=== PATIENT | female | born 1945 | race Caucasian/White ===

== ENCOUNTER 2017-08-16 10:57 | Outpatient (CLI) | payer MEDICARE, OTHER ==
[2017-08-16 12:48] LABS: Hematocrit 38.7 % (36.0-47.0); Mean Platelet Volume 7.7 fL (7.4-10.4); Red Blood Cell (RBC) Count 4.08 mill/uL (4.20-5.40); White Blood Cell (WBC) Count 6.4 thou/uL (4.8-10.8)
[2017-08-16 13:09] LABS: Anion Gap 10 mmol/L (10-20); BUN (Urea Nitrogen) 19 mg/dL (9.8-20.1); Calc. Creatinine Clearance 0 mL/min (70-130); Calcium 9.2 mg/dL (7.8-10.44); Carbon Dioxide 28 mmol/L (23-31); Chloride 105 mmol/L (98-107); Estimated GFR-MDRD 86
--- NOTE | 2017-08-16 13:38 | RAD ---
PA AND LATERAL CHEST: History: Pre-operative. Comparison: None. FINDINGS: There is mild bibasilar atelectasis. No confluent airspace opacities or pleural effusions noted. Car diomediastinal silhouette is within normal limits. The aorta is tortuous. No acute osseous abnormali ty is evident. IMPRESSION: Mild bibasilar atelectasis. POS: [facility]
--- NOTE | 2017-08-16 16:15 | EKG ---
Test Reason : Blood Pressure : / mmHG Vent. Rate : 063 BPM Atrial Rate : 063 BPM P-R Int : 180 ms QRS Dur : 094 ms QT Int : 440 ms P-R-T Axes : 047 011 038 degrees QTc Int : 450 ms Normal sinus rhythm Cannot rule out Anterior infarct , age undetermined Abnormal ECG No previous ECGs available Confirmed by DR. Lily COLEMAN ([id number]) on 08/16/2017 4:15:26 PM Referred By: CLIVE Confirmed By:DR. Lily COLEMAN
== END 2017-08-16 10:58 | disposition home or self-care (01) ==
LOC: LABBT 10:57
PROVIDERS: ATTEND Orthopaedic Surgery Hand Surgery
DX: Z01.818 Encounter for other preprocedural examination (principal); M65.332 Trigger finger, left middle finger; J98.11 Atelectasis
CPT/HCPCS: 71020; 80048; 85027; 93005; 93010

== ENCOUNTER 2018-04-01 10:24 | Inpatient (IN) | payer MEDICARE ==
[2018-04-01 10:49] LABS: #Eosinphils 0.2 thou/uL (0.0-0.7); #Lymphocytes 1.4 thou/uL (1.20-3.40); #Monocytes 0.7 thou/uL (0.11-0.59); %Basophils 0.6 % (0.0-1.0); %Eosinophils 2.4 % (0.0-10.0); %Lymphocytes 18.8 % (21.0-51.0); %Monocytes 9.7 % (0.0-10.0); %Neutrophils 68.5 % (42.0-75.0); Hemoglobin 12.9 g/dL (12.0-16.0); Mean Corpuscular HGB CONC 33.9 g/dL (32.0-36.0); Mean Corpuscular Hemoglobin 31.3 pg (27.0-31.0); Mean Corpuscular Volume 92.4 fl (81.0-99.0); Mean Platelet Volume 7.2 fL (7.4-10.4); Platelet Count 207 thou/uL (130-400); RBC Distribution Width 12.9 % (11.5-14.5); Red Blood Cell (RBC) Count 4.11 mill/uL (4.20-5.40); White Blood Cell (WBC) Count 7.3 thou/uL (4.8-10.8)
[2018-04-01 11:12] LABS: ALT (SGPT) 15 U/L (8-55); AST (SGOT) 24 U/L (5-34); Albumin 4.4 g/dL (3.4-4.8); Alkaline Phosphatase 71 U/L (40-150); Anion Gap 14 mmol/L (10-20); BUN (Urea Nitrogen) 14 mg/dL (9.8-20.1); Bilirubin, Total 1.3 mg/dL (0.2-1.2); Calc. Creatinine Clearance 0 mL/min (70-130); Calcium 9.3 mg/dL (7.8-10.44); Carbon Dioxide 22 mmol/L (23-31); Chloride 106 mmol/L (98-107); Estimated GFR-MDRD 81; Globulin 2.5 g/dL (2.4-3.5); Glucose 100 mg/dL (80-115); Potassium 4.1 mmol/L (3.5-5.1); Protein, Total 6.9 g/dL (6.0-8.3); Sodium 138 mmol/L (136-145)
[2018-04-01 11:17] LABS: CKMB 4.1 ng/mL (0-6.6)
--- NOTE | 2018-04-01 12:04 | RAD ---
AP VIEW CHEST: INDICATIONS: History of EKG changes and dehydration with low blood pressure. COMPARISON: 09/12/2017 FINDINGS: The lungs are clear. The heart size is at the upper limits of normal. No consolidation, pleural eff usion, or pneumothorax is evident. No acute osseous abnormality is evident. The examination is comp ared to a prior study dated 09/12/2017. The examination has not appreciably changed from the compari son study. IMPRESSION: No acute cardiopulmonary abnormality. POS: [facility]
[2018-04-01] MEDS ORDERED: Iopamidol 370 76% 50 ML VIAL FS ONE (12:13)
[2018-04-01] MEDS ORDERED: Iopamidol 370 76% 100 ML VIAL ONE (12:13)
[2018-04-01] MEDS ORDERED: Nitroglycerin 0.4 MG TAB (25 Tab Bottle) SL PRN ×2 (13:05→15:11)
[2018-04-01] MEDS ORDERED: Bisacodyl 5 MG TAB PO PRN (13:05)
[2018-04-01 13:55] LABS: Critical Call Chem Troponin I RESULT DECREASING; Troponin I 0.453 ng/mL (< 0.028)
--- NOTE | 2018-04-01 14:01 | HP ---
PRIMARY CARE PHYSICIAN: Dr. Thiago Frias CHIEF COMPLAINT: Abnormal EKG. HISTORY OF PRESENT ILLNESS: Ms. Nair is a pleasant 72-year-old lady who was seen at [facility] on 04/01/2018 after she was sent to the emergency room by her primary care jina zelaya. She was following up with her orthopedic surgeon yesterday. At that time, she was found to have low blood pressure, 84/62. She called her primary care provider's office. Around 11:00 a.m., she was se nt to an urgent care clinic. She had an electrocardiogram done there and discharged home. At home, she rechecked her blood pressure and found that it was even lower. She went for a followup with her primary care provider today. She reports feeling lightheaded yesterday afternoon. She had another e lectrocardiogram done today at her PCP's office and the electrocardiogram was found to be different f rom the one done at [facility] yesterday. She was therefore sent to the emergency room. She reports not taking her antihypertensives over the last 3 days. She denies any chest pain or shor tness of breath. She denies any fevers or chills. REVIEW OF SYSTEMS: All other systems reviewed and found to be negative. PAST MEDICAL HISTORY: Significant for hypertension, dyslipidemia and multiple sclerosis. PAST SURGICAL HISTORY: Bilateral foot surgery, left carpal tunnel surgery, and bilateral knee replac ement. PSYCHIATRIC HISTORY: Depression. FAMILY HISTORY: Coronary artery disease in her mother. CVA or DC in her father. SOCIAL HISTORY: Occasional alcohol use, no tobacco use or recreational drug use. CODE STATUS: She is FULL CODE. Her medical power of contract attorney is Jocelynn Devine. ALLERGIES: CEPHALOSPORINS. CURRENT MEDICATIONS: Effexor 150 mg daily, Crestor 10 mg daily, Tribenzor 20/5/12.5 mg daily, Myrbet riq 25 mg daily. PHYSICAL EXAMINATION: GENERAL: Ms. Nair is awake and alert, not in acute distress. VITAL SIGNS: Blood pressure is 110/68, pulse is 84. She is breathing at rate of 16, and saturating 99% on room air. She is afebrile. EYES: No scleral icterus. No conjunctival pallor. ENT: Moist mucosal membranes, no oropharyngeal erythema or exudates. NECK: Supple, nontender, normal range of movement. Trachea is midline. RESPIRATORY: Accessory muscles of breathing are not active. Chest wall movements are symmetric bila terally. LUNGS: Clear to auscultation without wheeze, rhonchi or crepitations. CARDIOVASCULAR: S1 and S2 are heard, peripheral pulses palpable. No pericardial rub, no carotid bru it. ABDOMEN: Soft, nontender, bowel sounds are heard, no hepatomegaly, no splenomegaly. LYMPHATIC: No cervical lymphadenopathy. SKIN: No rashes or subcutaneous nodules. NEUROLOGIC: Cranial nerves II-XII intact. Deep tendon reflexes are 2+. MUSCULOSKELETAL: Power is 5/5 in all 4 extremities. PSYCHIATRIC: Normal mood, normal affect, patient is oriented to person, place, and time. LABORATORY DATA: Ms. Nair's labs and investigations were reviewed. I reviewed her electrocardiog robert, which shows normal sinus rhythm with T-wave flattening in the inferior leads and T-wave inversio ns in the anterolateral leads. I also reviewed her chest x-ray, which does not show any pulmonary in filtrates. She has an unremarkable CBC and a mildly elevated total bilirubin of 1.3, mildly decreased carbon zac xide of 22, otherwise normal comprehensive metabolic profile and elevated troponin I of 0.480. ASSESSMENT AND PLAN: Ms. Nair is a pleasant 72-year-old lady who was seen at [facility] on 04/01/2018. Her problem list includes: 1. Non-ST elevation myocardial infarction: She is presenting with non-ST elevation myocardial infar ction, with elevated troponin I and T-wave inversions in the lateral leads. She will be admitted to the hospital for further management. Cardiology Service has been consulted by the emergency room talia sahu. I will continue her on aspirin for now. 2. Hypertension. Monitor vital signs, titrate antihypertensives as needed. 3. Dyslipidemia: Continue statin. 4. Multiple sclerosis: Stable. Many thanks for allowing me to participate in your patient's care. Please feel free to contact me wi th any questions or concerns. LEVEL OF RISK: High. LEVEL OF COMPLEXITY: High.
[2018-04-01] MEDS ORDERED: Communication Order-Pharmacy FS SCH (14:15)
[2018-04-01] MEDS ORDERED: Lidocaine 1% (PF) 30 ML VIAL ONE (14:21)
[2018-04-01] MEDS ORDERED: Sodium Chloride 0.9% 500 ML IVPB SCH (14:30)
[2018-04-01 14:43] VITALS: BMI 33.9
[2018-04-01] MEDS ORDERED: Midazolam HCl 2 mg/2 ml Vial ONE (14:48)
[2018-04-01] MEDS ORDERED: Acetaminophen/Codeine 30-300mg Tablet PO PRN ×2 (15:11)
[2018-04-01] MEDS ORDERED: traMADol HCl 50 MG TAB PO PRN (15:11)
[2018-04-01] MEDS ORDERED: Sodium Chloride 0.9% 200 ML IV PRN (15:15)
--- NOTE | 2018-04-01 15:23 | CON ---
DATE OF CONSULTATION: 04/01/2018 HISTORY OF PRESENT ILLNESS: Patient is a 72-year-old woman who presents for evaluation of chest discomfort and abnormal ECG. The patient has no previous cardiac history. The patient was noted yesterday to have low blood pressure. She went to [facility]. She underwent an echocardiogram and was released. The patient subsequently reported having left-sided chest discomfort. She came to the emergency room for further evaluation. She went to see her primary physician who saw that she had a markedly abnormal electrocardiogram and was admitted for further evaluation. The patient denies having any present chest discomfort. PAST MEDICAL HISTORY: 1. Hypertension. 2. Hypercholesterolemia. PAST SURGICAL HISTORY: Knee surgery. SOCIAL HISTORY: Former smoker. FAMILY HISTORY: Strong family history of coronary artery disease. ALLERGIES: CEPHALOSPORINS. REVIEW OF SYSTEMS: Ten-point system otherwise unremarkable. MEDICATIONS: Crestor 10 at bedtime, meloxicam 7.5 daily, Tribenzor 20/5/4.5 tablet daily. REVIEW OF SYSTEMS: Ten-point system otherwise unremarkable. PHYSICAL EXAMINATION: GENERAL: Well-developed woman in no acute distress. VITAL SIGNS: Blood pressure was 105/70 and heart rate was 70. NECK: Showed no jugular distention, no carotid bruits. HEART: Regular rate and rhythm, normal S1, S2. ABDOMEN: Nondistended. EXTREMITIES: Show no edema. SKIN: Warm and dry. NEUROLOGIC: Nonfocal. VASCULAR: Radial pulses are 2+. LABORATORY DATA AND IMAGING DATA: White blood cell count 7.3, hemoglobin 12.9, hematocrit 38.0, platelets are 207. Sodium is 138, potassium 4.1, chloride 106 , bicarbonate 22, BUN 14, creatinine 0.71, glucose is 100. Troponin was 0.48. Her EKG revealed normal sinus rhythm with marked ST-T wave abnormality with prolonged QT interval suggestive of ischemia. IMPRESSION: 1. Non-Q-wave myocardial infarction. 2. Hypotension. 3. Dyslipidemia. This patient presents with a non-Q-wave myocardial infarction, and a markedly abnormal EKG suggestive of severe CAD. I have recommended proceeding directly to cardiac catheterization to evaluate the extent of her coronary artery disease. I explained the risks involved cardiac catheterization including IL, bleeding, stroke, cardiac arrhythmia, and cardiac . I explained the risks involved stent placement restenosis. Patient understands these risks and wishes to proceed. MACARIO
[2018-04-01] MEDS: Sodium Chloride 0.9% 1,000 ML IV SCH ×2 (16:08→23:57)
[2018-04-01 17:00] LABS: Critical Call Chem Troponin I RESULT DECREASING; Troponin I 0.348 ng/mL (< 0.028)
[2018-04-01] MEDS ORDERED: Atorvastatin Calcium 40 MG TAB PO SCH (21:00)
[2018-04-02 05:22] LABS: #Eosinphils 0.3 thou/uL (0.0-0.7); #Lymphocytes 1.2 thou/uL (1.20-3.40); #Monocytes 0.6 thou/uL (0.11-0.59); #Neutrophils 4.4 thou/uL (1.40-6.50); %Basophils 0.6 % (0.0-1.0); %Eosinophils 3.9 % (0.0-10.0); %Lymphocytes 18.4 % (21.0-51.0); %Monocytes 9.6 % (0.0-10.0); %Neutrophils 67.5 % (42.0-75.0); Hemoglobin 11.9 g/dL (12.0-16.0); Mean Corpuscular HGB CONC 34.5 g/dL (32.0-36.0); Mean Corpuscular Hemoglobin 31.4 pg (27.0-31.0); Mean Corpuscular Volume 91.1 fL (78.0-98.0); Platelet Count 188 thou/uL (130-400); RBC Distribution Width 12.8 % (11.5-14.5); White Blood Cell (WBC) Count 6.6 thou/uL (4.8-10.8)
[2018-04-02 05:53] LABS: Anion Gap 10 mmol/L (10-20); BUN (Urea Nitrogen) 12 mg/dL (9.8-20.1); Calc. Creatinine Clearance 92 mL/min (70-130); Calcium 8.6 mg/dL (7.8-10.44); Carbon Dioxide 25 mmol/L (23-31); Chloride 110 mmol/L (98-107); Estimated GFR-MDRD Greater than 90; Glucose 109 mg/dL (80-115); Potassium 3.8 mmol/L (3.5-5.1); Sodium 141 mmol/L (136-145)
[2018-04-02] MEDS: Aspirin 325 MG TAB PO SCH (09:22)
[2018-04-02] MEDS ORDERED: Lisinopril 2.5 MG TAB PO SCH (14:00)
[2018-04-02] MEDS: Sodium Chloride 0.9% 1,000 ML IV SCH ×2 (17:01→19:34)
[2018-04-02] MEDS: Carvedilol 3.125 MG TAB PO SCH (17:02)
--- NOTE | 2018-04-02 18:39 | PDOC.PN ---
- Subjective Encounter Start Date: 04/02/18 Encounter Start Time: 14:00 pt seen for followup re: chest pain. Denies chest pain, shortness of breath, fevers or chills - Objective Resuscitation Status: Resuscitation Status FULL:Full Resuscitation Vital Signs & Weight: Vital Signs (12 hours) Temp Pulse Pulse Pulse Resp BP BP 04/02/18 16:00 98.2 F 74 16 04/02/18 15:30 77 04/02/18 11:44 98.6 F 77 16 04/02/18 10:01 79 88 101/62 130/64 04/02/18 08:00 98.6 F 77 16 BP Pulse Ox 04/02/18 16:00 115/62 96 04/02/18 15:30 04/02/18 11:44 106/62 97 04/02/18 10:01 04/02/18 08:00 106/67 94 L Weight Weight 156 lb 12.8 oz Result Diagrams: 04/02/18 05:00 04/02/18 05:00 EKG Reviewed by me: Yes (tele: NSR) Phys Exam - Physical Examination Constitutional: NAD HEENT: moist MMs Neck: supple Respiratory: clear to auscultation bilateral Cardiovascular: RRR, no rub Gastrointestinal: soft, non-tender Neurological: moves all 4 limbs Psychiatric: normal affect Dx/Plan (1) Chest pain Code(s): R07.9 - CHEST PAIN, UNSPECIFIED Status: Acute Comment: no current chest pain, normal coronaries on cardiac cath (2) Cardiomyopathy Code(s): I42.9 - CARDIOMYOPATHY, UNSPECIFIED Status: Acute Comment: pt awaiting LifeVest, continue beta ayo and ACEI (3) HTN (hypertension) Code(s): I10 - ESSENTIAL (PRIMARY) HYPERTENSION Status: Chronic Comment: monitor vital signs, titrate antihypertensives as needed (4) Dyslipidemia Code(s): E78.5 - HYPERLIPIDEMIA, UNSPECIFIED Status: Chronic - Plan * . continue statin Review of Systems - Review of Systems Constitutional: negative: fever, chills, sweats, weakness, malaise Cardiovascular: negative: chest pain, palpitations, orthopnea, paroxysmal nocturnal dyspnea, edema, light headedness - Medications/Allergies Allergies/Adverse Reactions: Allergies Allergy/AdvReac Type Severity Reaction Status Date / Time Cephalosporins Allergy Verified 04/01/18 14:41 Medications: Current Medications Acetaminophen/Codeine Phosphate (Tylenol #3) 1 tab PO Q4H PRN PRN Reason: Mild Pain (1-3) Acetaminophen/Codeine Phosphate (Tylenol #3) 2 tab PO Q4H PRN PRN Reason: Moderate Pain (4-6) Aspirin (Aspirin) 325 mg PO DAILY [facility] Last Admin: 04/02/18 09:22 Dose: 325 mg Bisacodyl (Dulcolax) 10 mg PO DAILYPRN PRN PRN Reason: Constipation Carvedilol (Coreg) 3.125 mg PO BID-[facility] Last Admin: 04/02/18 17:02 Dose: 3.125 mg Sodium Chloride (Normal Saline 0.9%) 1,000 mls @ 100 mls/hr IV .Q10H [facility] Last Admin: 04/02/18 17:01 Dose: Not Given Lisinopril (Zestril) 2.5 mg PO 1400 [facility] Last Admin: 04/02/18 15:30 Dose: 2.5 mg Nitroglycerin (Nitrostat) 0.4 mg SL Q5MIN PRN PRN Reason: Chest Pain Rosuvastatin Calcium (Crestor) 10 mg PO HS [facility] Sodium Chloride (Flush - Normal Saline) 10 ml IVF Q12HR [facility] Last Admin: 04/02/18 15:30 Dose: 10 ml Sodium Chloride (Flush - Normal Saline) 10 ml IVF PRN PRN PRN Reason: Saline Flush Tramadol HCl (Ultram) 50 mg PO Q6H PRN PRN Reason: Moderate Pain (4-6)
[2018-04-02] MEDS ORDERED: Rosuvastatin 10 MG TAB PO SCH (21:00)
[2018-04-03] MEDS: Sodium Chloride 0.9% 1,000 ML IV SCH (03:41)
[2018-04-03 04:33] LABS: #Eosinphils 0.3 thou/uL (0.0-0.7); #Monocytes 0.6 thou/uL (0.11-0.59); #Neutrophils 4.1 thou/uL (1.40-6.50); %Basophils 0.6 % (0.0-1.0); %Eosinophils 4.9 % (0.0-10.0); %Lymphocytes 16.4 % (21.0-51.0); %Monocytes 9.5 % (0.0-10.0); %Neutrophils 68.7 % (42.0-75.0); Hemoglobin 11.5 g/dL (12.0-16.0); Mean Corpuscular HGB CONC 34.3 g/dL (32.0-36.0); Mean Corpuscular Hemoglobin 31.4 pg (27.0-31.0); Mean Corpuscular Volume 91.4 fL (78.0-98.0); Mean Platelet Volume 7.1 fL (7.4-10.4); Platelet Count 168 thou/uL (130-400); RBC Distribution Width 12.9 % (11.5-14.5); Red Blood Cell (RBC) Count 3.67 mill/uL (4.20-5.40)
[2018-04-03 04:52] LABS: Anion Gap 10 mmol/L (10-20); BUN (Urea Nitrogen) 11 mg/dL (9.8-20.1); Calc. Creatinine Clearance 96 mL/min (70-130); Calcium 8.7 mg/dL (7.8-10.44); Carbon Dioxide 25 mmol/L (23-31); Chloride 110 mmol/L (98-107); Estimated GFR-MDRD Greater than 90; Glucose 111 mg/dL (80-115); Potassium 3.8 mmol/L (3.5-5.1); Sodium 141 mmol/L (136-145)
[2018-04-03] MEDS: Aspirin 325 MG TAB PO SCH (08:53)
[2018-04-03] MEDS: Carvedilol 3.125 MG TAB PO SCH (08:53)
[2018-04-03 11:47] VITALS: BP 120/73; TEMP 98.1
--- NOTE | 2018-04-03 14:20 | DIS ---
DATE OF ADMISSION: 04/01/2018 DATE OF DISCHARGE: 04/03/2018 PRIMARY CARE PROVIDER: Thiago Frias M.D. ADMITTING DIAGNOSIS: Nonischemic cardiomyopathy. CONDITION OF PATIENT ON THE DAY OF DISCHARGE: Stable. I assessed Ms. Nair on the day of discharg e. She denies any chest pain or shortness of breath. She denies any fevers or chills. Vital signs are stable. S1 and S2 are heard, regular. Lungs are clear to auscultation bilaterally. DISCHARGE MEDICATIONS: Aspirin 325 mg daily, carvedilol 2.5 mg 2 times a day, vitamin C 500 mg daily , vitamin D3 of 2000 units daily, diclofenac 75 mg at bedtime, folic acid 0.8 mg daily, lisinopril 2. 5 mg daily, vitamin B12 of 1000 mcg sublingually daily, Myrbetriq 25 mg daily, potassium gluconate 59 5 mg daily, Crestor 10 mg at bedtime, selenium 100 mg daily, Zanaflex 2 mg as needed, Coenzyme Q10 of 30 mg daily, Effexor 75 mg 2 times a day, and zinc 50 mg daily. CONSULTATIONS DURING THIS HOSPITALIZATION: Cardiology, Dr. Pal. HOSPITAL COURSE: Ms. Nair is a pleasant 72-year-old lady who was admitted to [facility] on 04/01/2018 for elevated troponin, preceded by hypotension. She was seen by Cardiolo gy Service. She underwent cardiac catheterization on 04/01/2018, which showed normal coronaries. A 2D echocardiogram on 04/02/2018 showed left ventricular ejection fraction of 30-35%. She has been st arted on ayo and ADRIENNE inhibitor. She has been fitted with a LifeVest, and is being discharged david e in a stable condition. On the day of discharge, she has normal sodium, normal potassium, creatinine 0.61, white count 6000, hemoglobin 11.5, and platelet count 168,000. Many thanks for allowing me to participate in your patient's care. Please feel free to contact me wi th any questions or concerns. DISCHARGE DESTINATION: Home. TOTAL AMOUNT OF TIME SPENT COORDINATING THIS DISCHARGE: 33 minutes.
== END 2018-04-03 13:17 | disposition home or self-care (01) | DRG 282 ==
LOC: ERS 10:24 → 2SE 12:20
PROVIDERS: ADMIT Internal Medicine; ATTEND Internal Medicine
PROC: 4A023N7 Measurement of Cardiac Sampling and Pressure, Left Heart, Percutaneous Approach (ICD-10-PCS; principal; 2018-04-01)
PROC: B2111ZZ Fluoroscopy of Multiple Coronary Arteries using Low Osmolar Contrast (ICD-10-PCS; 2018-04-01)
PROC: B2151ZZ Fluoroscopy of Left Heart using Low Osmolar Contrast (ICD-10-PCS; 2018-04-01)
PROC: B246ZZZ Ultrasonography of Right and Left Heart (ICD-10-PCS; 2018-04-01)
DX: I42.8 Other cardiomyopathies (principal); I21.4 Non-ST elevation (NSTEMI) myocardial infarction; I10 Essential (primary) hypertension; E78.5 Hyperlipidemia, unspecified; E78.00 Pure hypercholesterolemia, unspecified; F32.9 Major depressive disorder, single episode, unspecified; G35 Multiple sclerosis
CPT/HCPCS: 36415; 71045; 80048; 80053; 82553; 84484; 85025; 93005; 93306; 93458; 93798; A4216; C1769; J1644; J2001; J2250

== ENCOUNTER 2018-07-07 10:40 | Outpatient (CLI) | payer MEDICARE | END 2018-07-07 10:41 | disposition home or self-care (01) | LOC: BICMAMMO 10:40 | PROVIDERS: ATTEND Obstetrics & Gynecology | DX: Z12.31 Encounter for screening mammogram for malignant neoplasm of breast (principal); R92.1 Mammographic calcification found on diagnostic imaging of breast | CPT/HCPCS: 77063; 77067 ==

== ENCOUNTER 2018-09-11 11:19 | Day surgery (SDC) | payer MEDICARE ==
[2018-09-10 08:58] VITALS: BMI 34.6
[2018-09-11] MEDS ORDERED: PROPOFOL 200 MG/20 ML VIAL ONE (11:21)
--- NOTE | 2018-09-11 22:37 | OP ---
DATE OF PROCEDURE: 09/11/2018 TITLE OF PROCEDURE: EGD with biopsy. ANESTHESIA: Total intravenous anesthesia by Dr. Marcelo Anguiano. PREPROCEDURE DIAGNOSIS: Chronic reflux, recently symptomatic, off acid-suppressive therapy. POSTPROCEDURE DIAGNOSES: 1. Exam to second portion of duodenum. 2. A 2-cm hiatal hernia. 3. Grade A distal esophagitis at 34 cm, biopsy. 4. Normal-appearing stomach. 5. Normal duodenum. 6. No evidence of peptic ulcer disease. PROCEDURE IN DETAIL: Written informed consent was obtained. The patient was brought to the endoscopy suite. Total intravenous anesthesia was provided by Dr. Anguiano. The patient was placed in the left lateral decubitus position. A bite block was inserted into the mouth. A Pentax video therapeutic gastroscope was introduced into the oral cavity and the esophagus was easily intubated. The gastroscope was advanced under direct visualization to the second portion of the duodenum. Endoscopic findings revealed a 2-cm hiatal hernia extending from 34 cm to 36 cm. Mucosal changes consistent with a mild grade A distal esophagitis were noted at 34 cm and biopsies were obtained for histology. The stomach was then entered and carefully examined. This included a retroflex view of the cardia and fundus. No ulcer or gastritis was identified. The duodenum from the bulb to the second portion was then inspected and appeared grossly normal. The stomach was decompressed as the endoscope was removed from the patient. She was then repositioned for the colonoscopy. There were no immediate complications. RECOMMENDATIONS: 1. Await biopsy results. 2. Ask the patient to call me in 1 week for biopsy results. 3. Resume acid-suppressive therapy, omeprazole or esomeprazole 20 mg daily. 4. Low-fat diet. 5. Follow up in GI Clinic in 4 to 6 weeks. Job ID: [id number]
--- NOTE | 2018-09-11 22:41 | OP ---
DATE OF PROCEDURE: 09/11/2018 TITLE OF PROCEDURE: Colonoscopy with snare polypectomy and biopsy. PREPROCEDURE DIAGNOSES: 1. Change in bowel habits. 2. History of colon polyps. POSTPROCEDURE DIAGNOSES: 1. Exam to cecum; good bowel preparation. 2. One diverticular orifice noted in the sigmoid colon. 3. Two small sessile polyps (6 mm and 3 mm) in the transverse colon, removed by snare electrocautery. 4. No obvious colitis, random biopsies obtained in the sigmoid colon for histology. 5. Small internal hemorrhoids. 6. Otherwise normal colonoscopy. PROCEDURE IN DETAIL: Written informed consent was obtained. Upon completion of the EGD, the patient was repositioned for the colonoscopy. A digital rectal exam revealed no significant abnormalities. A Pentax video colonoscope was inserted through the anal canal and advanced under direct visualization to the cecum. Position in the cecum was verified by clear identification of the ileocecal valve and appendiceal orifice. The quality of the bowel preparation was good. Each colon segment was examined carefully as the colonoscope was slowly withdrawn from the cecum. Vascular pattern and haustral folds appeared normal. The mucosa appeared intact without evidence of overt colitis. Random biopsies were obtained in the sigmoid colon for histology. In the mid-transverse colon, two small sessile polyps were identified and removed by snare electrocautery. The tissue from both polyps was retrieved for histology. The polyp sizes are described above. No other synchronous polyps were identified. One small benign appearing diverticular orifice was noted in the sigmoid colon. In the rectum, a retroflex view demonstrated small internal hemorrhoids that were not actively bleeding. The colon was decompressed as the colonoscope was completely removed from the patient. She was transferred to the Day Stay Surgery area for postprocedure monitoring. There were no immediate complications. RECOMMENDATIONS: 1. Await pathology results. 2. Ask the patient to call me in 1 week for pathology results. 3. Repeat colonoscopy in 5 years. 4. Take Metamucil capsule 1 to 2 daily for the next 2 to 3 weeks. 5. Followup in GI clinic in 4 to 6 weeks. Job ID: [id number]
== END 2018-09-11 16:14 | disposition home or self-care (01) ==
LOC: SDC 11:19
PROVIDERS: ATTEND Internal Medicine Gastroenterology
PROC: 0DB38ZX Excision of Lower Esophagus, Via Natural or Artificial Opening Endoscopic, Diagnostic (ICD-10-PCS; principal; 2018-09-11)
PROC: 0DBE8ZX Excision of Large Intestine, Via Natural or Artificial Opening Endoscopic, Diagnostic (ICD-10-PCS; 2018-09-11)
PROC: 0DBL8ZX Excision of Transverse Colon, Via Natural or Artificial Opening Endoscopic, Diagnostic (ICD-10-PCS; 2018-09-11)
DX: D12.3 Benign neoplasm of transverse colon (principal); K63.5 Polyp of colon; K20.9 Esophagitis, unspecified; K44.9 Diaphragmatic hernia without obstruction or gangrene; K64.8 Other hemorrhoids; K21.9 Gastro-esophageal reflux disease without esophagitis; K57.30 Diverticulosis of large intestine without perforation or abscess without bleeding; E78.00 Pure hypercholesterolemia, unspecified; I25.5 Ischemic cardiomyopathy; I10 Essential (primary) hypertension; Z86.010 Personal history of colon polyps; Z79.899 Other long term (current) drug therapy; Z88.1 Allergy status to other antibiotic agents; Z88.8 Allergy status to other drugs, medicaments and biological substances; Z79.82 Long term (current) use of aspirin
CPT/HCPCS: 88305; 88312; 88313; J2704

== ENCOUNTER 2019-01-26 10:03 | Emergency (ER) | payer MEDICARE ==
--- NOTE | 2019-01-26 11:34 | CT ---
Exam: CT brain without contrast HISTORY: Head trauma COMPARISON: None TECHNIQUE: Multiple contiguous axial images were obtained and a CT of the brain without contrast. FINDINGS: There are scattered hypodensities in the subcortical and periventricular white matter consi stent with small vessel ischemic disease. There is no evidence of hydrocephalus, intracranial hemorrhage, or extra-axial fluid collection. The calvarium and overlying soft tissues are unremarkable. The visualized paranasal sinuses and masto id air cells are well aerated. IMPRESSION: No evidence of acute intracranial abnormality
--- NOTE | 2019-01-26 11:41 | CT ---
Exam: CT of the cervical spine without contrast HISTORY: Neck pain after head trauma COMPARISON: None TECHNIQUE: Multiple contiguous axial images were obtained in a CT of the cervical spine without contr ast. Sagittal and coronal reformats were performed. FINDINGS: The vertebral bodies demonstrate normal height and alignment without fracture or subluxatio n. No prevertebral soft tissue swelling is seen. Moderate degenerative changes are seen throughout the cervical spine with intervertebral disc space narrowing. The posterior facets are well aligned. Normal alignment of the skull base with the cervical spine is seen. The lung apices and cervical soft tissues are unremarkable. IMPRESSION: No evidence of acute osseous abnormality of the cervical spine.
[2019-01-26] MEDS ORDERED: Lidocaine 1% w/Epinephrine 1:100K 20 ML VIAL ONE (11:56)
== END 2019-01-26 12:40 | disposition home or self-care (01) ==
LOC: ERS 10:03
DX: S01.81XA Laceration without foreign body of other part of head, initial encounter (principal); S16.1XXA Strain of muscle, fascia and tendon at neck level, initial encounter; I10 Essential (primary) hypertension; E78.00 Pure hypercholesterolemia, unspecified; F41.9 Anxiety disorder, unspecified; F32.9 Major depressive disorder, single episode, unspecified; Z79.899 Other long term (current) drug therapy; W22.8XXA Striking against or struck by other objects, initial encounter
CPT/HCPCS: 12011; 70450; 72125; J2001

== ENCOUNTER 2019-07-08 10:19 | Outpatient (CLI) | payer MEDICARE ==
--- NOTE | 2019-07-08 13:06 | MMO ---
Bilateral MAMMO Bilat Screen [facility]. CLINICAL HISTORY: Patient is 73 years old and is seen for screening. The patient has no family history of breast cancer. The patient has no personal history of cancer. The patient has a history of left Excisional Biopsy in 1992 - benign. VIEWS: The views performed were: bilateral craniocaudal with tomosynthesis and bilateral mediolateral oblique with tomosynthesis. FILMS COMPARED: The present examination has been compared to prior imaging studies performed at [facility] on 07/19/2015, 07/02/2016, 07/04/2017 and 07/07/2018. This study has been interpreted with the assistance of computer-aided detection. MAMMOGRAM FINDINGS: There are scattered fibroglandular densities. There are stable benign appearing calcifications seen in both breasts. There are no suspicious masses, suspicious calcifications, or new areas of architectural distortion. IMPRESSION: THERE IS NO MAMMOGRAPHIC EVIDENCE OF MALIGNANCY. A ROUTINE FOLLOW-UP MAMMOGRAM IN 1 YEAR IS RECOMMENDED. THE RESULTS OF THIS EXAM WERE SENT TO THE PATIENT. ACR BI-RADS Category 2 - Benign finding MAMMOGRAPHY NOTE: 1. A negative mammogram report should not delay a biopsy if a dominant of clinically suspicious mass is present. 2. Approximately 10% to 15% of breast cancers are not detected by mammography. 3. Adenosis and dense breasts may obscure an underlying neoplasm. Reported by: DEVAUGHN ARAIZA MD Electonically Signed: [id number]
== END 2019-07-08 10:20 | disposition home or self-care (01) ==
LOC: BICMAMMO 10:19
PROVIDERS: ATTEND Obstetrics & Gynecology
DX: Z12.31 Encounter for screening mammogram for malignant neoplasm of breast (principal)
CPT/HCPCS: 77063; 77067

== ENCOUNTER 2019-10-13 05:45 | Emergency (ER) | payer MEDICARE ==
[2019-10-13] MEDS ORDERED: Adacel (T-DAP) 0.5 ML SYRINGE ONE (06:27)
--- NOTE | 2019-10-13 08:00 | RAD ---
XR Finger(s) Lt Min 2 View: 10/13/2019 6:05 AM CLINICAL INDICATION: Fall COMPARISON: None. FINDINGS: Fracture:No fracture. Arthropathy:Mild arthropathy. Incidental findings:None of significance. IMPRESSION: 1. No acute osseous abnormality.
== END 2019-10-13 06:55 | disposition home or self-care (01) ==
LOC: ERS 05:45
DX: S60.042A Contusion of left ring finger without damage to nail, initial encounter (principal); S01.511A Laceration without foreign body of lip, initial encounter; I10 Essential (primary) hypertension; E78.00 Pure hypercholesterolemia, unspecified; F41.9 Anxiety disorder, unspecified; F32.9 Major depressive disorder, single episode, unspecified; Z79.891 Long term (current) use of opiate analgesic; Z79.899 Other long term (current) drug therapy; W18.2XXA Fall in (into) shower or empty bathtub, initial encounter
CPT/HCPCS: 90471; 90715

== ENCOUNTER 2020-07-11 08:58 | Outpatient (CLI) | payer MEDICARE ==
--- NOTE | 2020-07-11 09:48 | MMO ---
Bilateral MAMMO Bilat Screen [facility]. CLINICAL HISTORY: Patient is 74 years old and is seen for screening. The patient has no family history of breast cancer. The patient has no personal history of cancer. The patient has a history of left Excisional Biopsy in 1992 - benign. VIEWS: The views performed were: bilateral craniocaudal with tomosynthesis and bilateral mediolateral oblique with tomosynthesis. FILMS COMPARED: The present examination has been compared to prior imaging studies performed at [facility] on 07/02/2016, 07/04/2017, 07/07/2018 and 07/08/2019. This study has been interpreted with the assistance of computer-aided detection. MAMMOGRAM FINDINGS: There are scattered fibroglandular densities. There are benign appearing calcifications seen in both breasts. There are no suspicious masses, suspicious calcifications, or new areas of architectural distortion. IMPRESSION: THERE IS NO MAMMOGRAPHIC EVIDENCE OF MALIGNANCY. A ROUTINE FOLLOW-UP MAMMOGRAM IN 1 YEAR IS RECOMMENDED. THE RESULTS OF THIS EXAM WERE SENT TO THE PATIENT. ACR BI-RADS Category 2 - Benign finding MAMMOGRAPHY NOTE: 1. A negative mammogram report should not delay a biopsy if a dominant of clinically suspicious mass is present. 2. Approximately 10% to 15% of breast cancers are not detected by mammography. 3. Adenosis and dense breasts may obscure an underlying neoplasm. Reported by: ARTURO VARGAS MD Electonically Signed: [id number]
== END 2020-07-11 08:59 | disposition home or self-care (01) ==
LOC: BICMAMMO 08:58
PROVIDERS: ATTEND Internal Medicine
DX: Z12.31 Encounter for screening mammogram for malignant neoplasm of breast (principal); Z91.89 Other specified personal risk factors, not elsewhere classified
CPT/HCPCS: 77063; 77067

== ENCOUNTER 2021-07-18 08:36 | Outpatient (CLI) | payer MEDICARE | END 2021-07-18 08:37 | disposition home or self-care (01) | LOC: BICMAMMO 08:36 | PROVIDERS: ATTEND Internal Medicine | DX: Z12.31 Encounter for screening mammogram for malignant neoplasm of breast (principal); Z91.89 Other specified personal risk factors, not elsewhere classified | CPT/HCPCS: 77063; 77067 ==

== ENCOUNTER 2022-07-24 10:54 | Outpatient (CLI) | payer MEDICARE | END 2022-07-24 10:55 | disposition home or self-care (01) | LOC: BICMAMMO 10:54 | PROVIDERS: ATTEND Family Medicine | DX: Z12.31 Encounter for screening mammogram for malignant neoplasm of breast (principal); N95.9 Unspecified menopausal and perimenopausal disorder; M85.851 Other specified disorders of bone density and structure, right thigh; M85.852 Other specified disorders of bone density and structure, left thigh; R92.1 Mammographic calcification found on diagnostic imaging of breast; Z91.89 Other specified personal risk factors, not elsewhere classified | CPT/HCPCS: 77063; 77067; 77080 ==

== ENCOUNTER 2023-08-06 07:59 | Outpatient (CLI) | payer MEDICARE | END 2023-08-06 08:00 | disposition home or self-care (01) | LOC: BICMAMMO 07:59 | PROVIDERS: ATTEND Internal Medicine | DX: Z12.31 Encounter for screening mammogram for malignant neoplasm of breast (principal); Z91.89 Other specified personal risk factors, not elsewhere classified | CPT/HCPCS: 77063; 77067 ==

== ENCOUNTER 2024-08-10 09:19 | Outpatient (CLI) | payer MEDICARE | END 2024-08-10 09:20 | disposition home or self-care (01) | LOC: BICMAMMO 09:19 | PROVIDERS: ATTEND Internal Medicine | DX: Z12.31 Encounter for screening mammogram for malignant neoplasm of breast (principal); Z91.89 Other specified personal risk factors, not elsewhere classified | CPT/HCPCS: 77063; 77067 ==

== ENCOUNTER 2025-08-11 08:39 | Outpatient (CLI) | payer MEDICARE | END 2025-08-11 08:40 | disposition home or self-care (01) | LOC: BICMAMMO 08:39 | PROVIDERS: ATTEND Emergency Medicine | DX: Z12.31 Encounter for screening mammogram for malignant neoplasm of breast (principal); Z91.89 Other specified personal risk factors, not elsewhere classified | CPT/HCPCS: 77063; 77067 ==